=== PATIENT | female | born 1990 | race Caucasian/White ===

== ENCOUNTER 2016-11-20 11:48 | Emergency (ER) | payer SELFPAY ==
[2016-11-20 12:34] VITALS: BP 143/69
--- NOTE | 2016-11-20 13:58 | UC ---
Abdominal Pain Female HPI - HPI Summary HPI Summary: pt presents c/o RLQ pain that has worsened over the last 3 days, has worsening nausea vomiting, and loose stools. Has history of ovarian cysts - History of Current Complaint Chief Complaint: UCAbdominalPain Stated Complaint: ABD PAIN Time Seen by Provider: 11/20/16 13:45 Hx Obtained From: Patient Hx Last Menstrual Period: 07/2016 ?: No Onset/Duration: Gradual Onset, Lasting Days Timing: Constant Severity Initially: Mild Severity Currently: Moderate Location: Discrete At: RLQ Radiates: Yes Radiates to: Flank Character: Aching, Dull, Sharp Aggravating Factor(s): Food Alleviating Factor(s): Nothing Associated Signs and Symptoms: Positive: Nausea, Vomiting, Diarrhea - Risk Factors Ovarian Torsion Risk Factor: Reproductive Age Allergies/Adverse Reactions: Allergies Allergy/AdvReac Type Severity Reaction Status Date / Time Hydromorphone [From Dilaudid] Allergy Severe Difficulty Verified 11/20/16 12:28 Breathing Latex Allergy Severe Hives/Diff. Verified 11/20/16 12:28 Breathing/I tching Morphine Allergy Severe Difficulty Verified 11/20/16 12:28 Breathing Penicillins Allergy Severe Difficulty Verified 11/20/16 12:28 Breathing seafood Allergy Severe Difficulty Uncoded 11/20/16 12:28 Breathing PMH/Surg Hx/FS Hx/Imm Hx - Additional Past Medical History Additional PMH: ovarian cysts Previously Healthy: Yes - obese Endocrine History Of: Denies: Diabetes Cardiovascular History Of: Denies: Hypertension, Congestive Heart Failure Respiratory History Of: Reports: Asthma GI/ History Of: Reports: Gall Bladder Disease - removed 2003 Denies: Renal Disease Neurological History Of: Reports: Seizures - not on medication, Migraine - Surgical History Surgical History: Yes Surgery Procedure, Year, and Place: [facility], C SECTIONS x2, cyst removal - Family History Known Family History: Positive: Hypertension - Social History Lives: With Family Alcohol Use: None Substance Use Type: None Smoking Status (MU): Never Smoked Tobacco - Immunization History Most Recent Influenza Vaccination: never Most Recent Tetanus Shot: remote Most Recent Pneumonia Vaccination: never Hx Tetanus, Diphtheria Vaccination: Yes Vaccination Up to Date: Yes Review of Systems Constitutional: Chills, Fatigue Skin: Negative Eyes: Negative ENT: Negative Respiratory: Negative Cardiovascular: Negative Gastrointestinal: Abdominal Pain, Vomiting, Diarrhea Genitourinary: Negative Motor: Negative Neurovascular: Negative Musculoskeletal: Negative Neurological: Negative Psychological: Negative All Other Systems Reviewed And Are Negative: Yes Physical Exam Triage Information Reviewed: Yes Appearance: Ill-Appearing, Pain Distress - RLQ Vital Signs: Initial Vital Signs Temp 97.4 F 11/20/16 12:25 Pulse 62 11/20/16 12:25 Resp 14 11/20/16 12:25 BP 143/69 11/20/16 12:25 Pulse Ox 99 11/20/16 12:25 Vital Signs Reviewed: Yes ENT Exam: Normal Neck exam: Normal Respiratory Exam: Normal Cardiovascular Exam: Normal Abdomen Description: Positive: McBurney's Point Tenderness, Other: - large, obese Musculoskeletal Exam: Normal Neurological Exam: Normal Psychological Exam: Normal Skin Exam: Normal Abd Pain Female Course/Dx - Course Course Of Treatment: pt is advbised to seek further evaluation for RLQ to evaluate for appendicitis. - Differential Dx/Diagnosis Differential Diagnosis: Appendicitis, Diverticulitis, Irritable Bowel Syndrome Provider Diagnoses: abdominal pain. appendicitis-? flank pain - Physician Notification/Consults Discussed Patient Care With: Tiffanie Cherry NP at [facility], She accepted pt. [id number]: pt changed her mind and asked to go to [facility]. Benítez accepted pt at [facility] Time Discussed With Above Provider: 14:08 - going to [facility] Instructed by Provider To: Transfer - to [facility] Discharge - Discharge Plan Condition: Stable Disposition: HOME Patient Education Materials: Acute Abdominal Pain (ED) Referrals: No Primary Care Phys,NOPCP [Primary Care Provider] -
== END 2016-11-20 14:19 | disposition left against medical advice (07) ==
LOC: UCCORT 11:48
DX: R10.31 Right lower quadrant pain (principal); R11.2 Nausea with vomiting, unspecified; R19.7 Diarrhea, unspecified; Z32.02 Encounter for pregnancy test, result negative; Z88.1 Allergy status to other antibiotic agents; Z88.6 Allergy status to analgesic agent; Z88.0 Allergy status to penicillin; Z90.49 Acquired absence of other specified parts of digestive tract
CPT/HCPCS: 99212; G0463

== ENCOUNTER 2017-08-27 15:07 | Emergency (ER) | payer OTHER ==
[2017-08-27 16:22] VITALS: BP 153/66
--- NOTE | 2017-08-27 16:35 | UC ---
Lower Extremity/Ankle HPI - HPI Summary HPI Summary: 26 year old female presents with multiple ortho complaints. She already had xray ordered already by PCP prior to being seen in . Fell down 30 steps 2 days ago. Pain 10/10 to the touch of left leg. No SOB. urine dark and blood per pt,. - History of Current Complaint Stated Complaint: LEFT HIP/KNEE/ANKLE INJURY Time Seen by Provider: 08/27/17 16:16 Hx Obtained From: Patient Hx Last Menstrual Period: 08/25/17 Onset/Duration: Sudden Onset Severity Initially: Moderate Severity Currently: Severe Aggravating Factor(s): Standing Alleviating Factor(s): Rest Able to Bear Weight: No - Allergies/Home Medications Allergies/Adverse Reactions: Allergies Allergy/AdvReac Type Severity Reaction Status Date / Time Hydromorphone [From Dilaudid] Allergy Severe Difficulty Verified 08/27/17 16:22 Breathing Latex Allergy Severe Hives/Diff. Verified 08/27/17 16:22 Breathing/I tching Morphine Allergy Severe Difficulty Verified 08/27/17 16:22 Breathing Penicillins Allergy Severe Difficulty Verified 08/27/17 16:22 Breathing seafood Allergy Severe Difficulty Uncoded 08/27/17 16:22 Breathing Home Medications: Home Medications Levothyroxine TAB* [Synthroid TAB*] 50 mcg PO DAILY 08/27/17 [History Confirmed 08/27/17] PMH/Surg Hx/FS Hx/Imm Hx Previously Healthy: Yes - Surgical History Surgical History: Yes Surgery Procedure, Year, and Place: [facility], C SECTIONS x2, cyst removal - Family History Known Family History: Positive: Hypertension - Social History Alcohol Use: None Substance Use Type: None Smoking Status (MU): Never Smoked Tobacco - Immunization History Most Recent Influenza Vaccination: never Most Recent Tetanus Shot: remote Most Recent Pneumonia Vaccination: never Hx Tetanus, Diphtheria Vaccination: Yes Vaccination Up to Date: Yes Review of Systems Musculoskeletal: Arthralgia, Decreased ROM All Other Systems Reviewed And Are Negative: Yes Physical Exam Triage Information Reviewed: Yes Appearance: Well-Appearing, Pain Distress - moderate to severe Vital Signs: Initial Vital Signs Temp 98.7 F 08/27/17 16:13 Pulse 71 08/27/17 16:13 Resp 16 08/27/17 16:13 BP 153/66 08/27/17 16:13 Pulse Ox 100 08/27/17 16:13 Vital Signs Reviewed: Yes Respiratory Exam: Normal Cardiovascular Exam: Normal Musculoskeletal: Positive: ROM Limited @ - left knee reduced ROM Skin Exam: Normal Skin: Positive: Other - left medial ankle with ecchymosis Lower Extremity Course/Dx - Course Course Of Treatment: Pain out of proportion to what woud be expected -- soft palpation of the medial ankle caused severe pain. concern for compartment syndrome. needs higher level of care. to go to ED at [place] [facility] spoke with Tiffanie Dempsey - Differential Dx/Diagnosis Differential Diagnosis/HQI/PQRI: Compartment Syndrome, Contusion, Fracture ( Closed), Sprain, Strain Provider Diagnoses: Left leg pain Discharge - Discharge Plan Condition: Good Disposition: TRANS HIGHER LVL OF CARE FAC Patient Education Materials: Hip Contusion (ED) Referrals: Obie BROWNING,Bernardino Bose [Primary Care Provider] - Additional Instructions: GO TO ED FOR FURTHER EVAL
== END 2017-08-27 17:02 | disposition short-term general hospital (02) ==
LOC: UCCORT 15:07
DX: M79.605 Pain in left leg (principal)
CPT/HCPCS: 99212; G0463